=== PATIENT | female | born 1990 | race Caucasian/White ===

== ENCOUNTER → 2022-12-31 | Outpatient (CLI) | payer OTHER ==
[~2022-12-31] MED LIST: Benadryl 50 mg50 MG PO; ERYT.5TO OU; HYDACE5 PO; META800 PO; METPRE4DP PO; NAPR550 PO; PSEU120ER PO; Pepcid20 MG PO; RXNAPNA550 PO; RXPROACE PO
[2023-01-03 18:09] LABS: HPV 16 Negative (Negative); HPV 18 Negative (Negative); HPV OTHER HR TYPES Negative (Negative)
== END ==
LOC: LAB SHORT 15:55 → LAB 15:55
PROVIDERS: Obstetrics & Gynecology
DX: Z01.419 Encounter for gynecological examination (general) (routine) without abnormal findings (principal)
CPT/HCPCS: 87624; G0145